=== PATIENT | female | born 1945 | race Caucasian/White ===

== ENCOUNTER 2021-02-07 15:09 | Observation (INO) ==
[2021-02-07] MEDS ORDERED: *HR* Dextrose 50 % in Water (Vial) 50 ML VIAL IVP PRN (16:02)
[2021-02-07] MEDS ORDERED: D5% in Water 1,000 ML IVC PRN (16:02)
[2021-02-07] MEDS ORDERED: Dextrose Gel 15 GM/37.5 ML TUBE PO PRN ×2 (16:02)
[2021-02-07 17:33] LABS: Basophils % 0.3 %; Eosinophils # 0.7 K/mcL (0.0-0.6); Hematocrit 27.4 % (35.3-44.9); Hemoglobin 8.6 g/dL (11.5-15.4); Immature Granulocytes % 0.3 % (0-4); Lymphocytes # 1.8 K/mcL (0.6-4.6); Lymphocytes % 19.7 %; Mean Corpuscular HGB Conc 31.4 g/dL (31.6-35.5); Mean Corpuscular Hemoglobin 28.2 pg (28.0-33.3); Mean Corpuscular Volume 89.8 fL (83.0-100.0); Mean Platelet Volume 9.7 fL (9.4-12.4); Monocytes # 0.8 K/mcL (0.0-1.3); Monocytes % 8.9 %; Neutrophils # 5.6 K/mcL (1.6-8.9); Platelet Count 193 K/mcL (140-400); Red Blood Count 3.05 M/mcL (3.82-4.97); Red Cell Distribution Width 13.7 % (11.5-14.5); Segmented Neutrophils % 62.8 %
[2021-02-07 17:47] LABS: BUN/Creatinine Ratio 24 (6-26); Blood Urea Nitrogen 21 mg/dL (8-23); Calcium 8.7 mg/dL (8.6-10.3); Carbon Dioxide 28 mEq/L (23-29); Chloride 101 mEq/L (98-107); Glucose 150 mg/dL (70-105); Osmolality,Calculated 286 (280-300); Potassium 3.9 mEq/L (3.5-5.1); Sodium 135 mEq/L (136-145); eGFR For African Americans > 60 (> 60); eGFR For Non-African Americans > 60 (> 60)
[2021-02-07] MEDS: Insulin LISPRO 300 UNITS/3 ML VIAL SUBQ SCH (18:07)
[2021-02-07] MEDS ORDERED: Insulin DETEMIR 100 UNIT/ML per UNIT SUBQ ONE (21:00)
[2021-02-07] MEDS: Apixaban 5 MG TABLET PO SCH (21:46)
[2021-02-07] MEDS: Furosemide 40 MG/4 ML VIAL IVP SCH (21:48)
[2021-02-07] MEDS: *HR* OxyCODONE Immed Rel 5 MG TABLET PO PRN (21:59)
[2021-02-07 22:45] LABS: Bilirubin,Urine Negative (Negative); Blood,Urine Large (Negative); Clarity,Urine Cloudy (Clear); Color,Urine Yellow (Yellow); Glucose,Urine (UA) 500 mg/dL (Normal); Ketones,Urine Negative (Negative); Leukocyte Esterase,Urine Small (Negative); Nitrite,Urine Negative (Negative); PH,Urine 5.5 pH Units (5.0-8.0); Protein,Urine 100 mg/dL (Neg-Trace); Urobilinogen,Urine Normal (Normal)
[2021-02-07 22:46] LABS: Bacteria,Urine Moderate per hpf (None-Few); Squamous Epithelial Cell,Urine Few per hpf (None-Few)
[2021-02-08 05:55] LABS: Basophils % 0.5 %; Eosinophils # 0.9 K/mcL (0.0-0.6); Eosinophils % 11.6 %; Hematocrit 26.7 % (35.3-44.9); Hemoglobin 8.4 g/dL (11.5-15.4); Immature Granulocytes % 0.3 % (0-4); Lymphocytes # 1.9 K/mcL (0.6-4.6); Lymphocytes % 23.4 %; Mean Corpuscular HGB Conc 31.5 g/dL (31.6-35.5); Mean Corpuscular Hemoglobin 28.1 pg (28.0-33.3); Mean Corpuscular Volume 89.3 fL (83.0-100.0); Mean Platelet Volume 9.9 fL (9.4-12.4); Monocytes # 0.7 K/mcL (0.0-1.3); Monocytes % 8.8 %; Neutrophils # 4.4 K/mcL (1.6-8.9); Platelet Count 197 K/mcL (140-400); Red Blood Count 2.99 M/mcL (3.82-4.97); Red Cell Distribution Width 13.7 % (11.5-14.5); Segmented Neutrophils % 55.4 %; White Blood Count 7.9 K/mcL (4.3-11.1)
[2021-02-08 06:12] LABS: BUN/Creatinine Ratio 23 (6-26); Blood Urea Nitrogen 22 mg/dL (8-23); Calcium 8.6 mg/dL (8.6-10.3); Carbon Dioxide 29 mEq/L (23-29); Chloride 103 mEq/L (98-107); Glucose 95 mg/dL (70-105); Osmolality,Calculated 291 (280-300); Sodium 139 mEq/L (136-145); eGFR For African Americans > 60 (> 60); eGFR For Non-African Americans 58 (> 60)
[2021-02-08] MEDS: Insulin LISPRO 300 UNITS/3 ML VIAL SUBQ SCH ×3 (08:08→17:24)
[2021-02-08] MEDS: Aspirin Enteric Coated 81 MG Tablet PO SCH (08:09)
[2021-02-08] MEDS: lisinopriL 20 MG TABLET PO SCH (08:09)
[2021-02-08] MEDS: Apixaban 5 MG TABLET PO SCH ×2 (08:09→20:03)
[2021-02-08] MEDS: Furosemide 40 MG/4 ML VIAL IVP SCH ×2 (08:09→14:47)
[2021-02-08] MEDS: Metoprolol XL (24 HR) Succ 50 MG TAB.ER.24H PO SCH (08:09)
[2021-02-08] MEDS ORDERED: Apixaban 5 MG TABLET PO SCH (09:00)
[2021-02-08] MEDS ORDERED: Levothyroxine 25 MCG TABLET PO SCH (09:00)
[2021-02-08] MEDS: Insulin DETEMIR 100 UNIT/ML X5UNITS SUBQ SCH ×2 (10:54→20:03)
[2021-02-08 13:18] LABS: % Iron Saturation 13 % (15-50); Iron 30 mcg/dL (50-170); Transferrin 167 mg/dL (203-362)
[2021-02-08 13:23] LABS: Estimated Average Glucose 180 mg/dl; Hemoglobin A1C 7.9 %
[2021-02-08] MEDS: *HR* OxyCODONE Immed Rel 5 MG TABLET PO PRN (14:47)
[2021-02-08] MEDS: cephALEXin 250 MG CAPSULE PO SCH ×3 (14:47→20:03)
[2021-02-09 05:17] LABS: Basophils % 0.4 %; Eosinophils % 9.4 %; Hematocrit 26.2 % (35.3-44.9); Hemoglobin 8.3 g/dL (11.5-15.4); Immature Granulocytes % 0.2 % (0-4); Lymphocytes # 3.1 K/mcL (0.6-4.6); Lymphocytes % 30.6 %; Mean Corpuscular HGB Conc 31.7 g/dL (31.6-35.5); Mean Corpuscular Hemoglobin 28.2 pg (28.0-33.3); Mean Corpuscular Volume 89.1 fL (83.0-100.0); Mean Platelet Volume 9.5 fL (9.4-12.4); Monocytes # 0.9 K/mcL (0.0-1.3); Monocytes % 8.9 %; Neutrophils # 5.2 K/mcL (1.6-8.9); Platelet Count 240 K/mcL (140-400); Red Blood Count 2.94 M/mcL (3.82-4.97); Red Cell Distribution Width 13.5 % (11.5-14.5); Segmented Neutrophils % 50.5 %; White Blood Count 10.3 K/mcL (4.3-11.1)
[2021-02-09 05:35] LABS: BUN/Creatinine Ratio 23 (6-26); Blood Urea Nitrogen 21 mg/dL (8-23); Calcium 8.3 mg/dL (8.6-10.3); Carbon Dioxide 33 mEq/L (23-29); Chloride 101 mEq/L (98-107); Glucose 61 mg/dL (70-105); Osmolality,Calculated 289 (280-300); Potassium 3.9 mEq/L (3.5-5.1); Sodium 139 mEq/L (136-145); eGFR For African Americans > 60 (> 60); eGFR For Non-African Americans > 60 (> 60)
[2021-02-09] MEDS ORDERED: Iron Polysaccharide Complex 150 MG CAPSULE PO SCH (09:00)
[2021-02-09] MEDS ORDERED: Furosemide 20 MG/2 ML VIAL IVP ONE (09:07)
[2021-02-09] MEDS: Insulin LISPRO 300 UNITS/3 ML VIAL SUBQ SCH ×3 (09:59→16:59)
[2021-02-09] MEDS: Cyanocobalamin (B-12) 1,000 MCG TABLET PO SCH (09:59)
[2021-02-09] MEDS: Aspirin Enteric Coated 81 MG Tablet PO SCH (09:59)
[2021-02-09] MEDS: lisinopriL 20 MG TABLET PO SCH (09:59)
[2021-02-09] MEDS: Apixaban 5 MG TABLET PO SCH ×2 (10:00→20:25)
[2021-02-09] MEDS: Insulin DETEMIR 100 UNIT/ML X5UNITS SUBQ SCH ×2 (10:00→20:25)
[2021-02-09] MEDS: Furosemide 40 MG/4 ML VIAL IVP SCH ×2 (10:00→16:52)
[2021-02-09] MEDS: Metoprolol XL (24 HR) Succ 50 MG TAB.ER.24H PO SCH (10:00)
[2021-02-09] MEDS: cephALEXin 250 MG CAPSULE PO SCH ×4 (10:00→20:25)
[2021-02-09] MEDS: *HR* OxyCODONE Immed Rel 5 MG TABLET PO PRN (16:52)
[2021-02-10 05:18] LABS: Eosinophils % 12.4 %; Hematocrit 25.4 % (35.3-44.9); Hemoglobin 8.1 g/dL (11.5-15.4); Immature Granulocytes % 0.4 % (0-4); Lymphocytes % 26.5 %; Mean Corpuscular HGB Conc 31.9 g/dL (31.6-35.5); Mean Corpuscular Hemoglobin 28.2 pg (28.0-33.3); Mean Corpuscular Volume 88.5 fL (83.0-100.0); Mean Platelet Volume 9.6 fL (9.4-12.4); Platelet Count 219 K/mcL (140-400); Red Blood Count 2.87 M/mcL (3.82-4.97); Red Cell Distribution Width 13.4 % (11.5-14.5); Segmented Neutrophils % 50.2 %; White Blood Count 7.5 K/mcL (4.3-11.1)
[2021-02-10 05:19] LABS: Basophils % 0.5 %; Eosinophils # 0.9 K/mcL (0.0-0.6); Monocytes # 0.8 K/mcL (0.0-1.3); Neutrophils # 3.8 K/mcL (1.6-8.9)
[2021-02-10 05:36] LABS: Alanine Aminotransferase 4 Units/L (7-52); Albumin 2.7 g/dL (3.5-5.7); Albumin/Globulin Ratio 0.8 (1.1-2.2); Alkaline Phosphatase 34 Units/L (34-104); Aspartate Amino Transferase 7 Units/L (13-39); BUN/Creatinine Ratio 33 (6-26); Bilirubin,Total 0.4 mg/dL (0.3-1.0); Blood Urea Nitrogen 26 mg/dL (8-23); Calcium 8.2 mg/dL (8.6-10.3); Carbon Dioxide 35 mEq/L (23-29); Chloride 97 mEq/L (98-107); Globulin 3.2 g/dL (2.4-3.5); Glucose 101 mg/dL (70-105); Osmolality,Calculated 287 (280-300); Potassium 3.7 mEq/L (3.5-5.1); Sodium 136 mEq/L (136-145); Total Protein 5.9 g/dL (6.4-8.9); eGFR For African Americans > 60 (> 60); eGFR For Non-African Americans > 60 (> 60)
[2021-02-10] MEDS: Insulin LISPRO 300 UNITS/3 ML VIAL SUBQ SCH ×3 (08:32→17:16)
[2021-02-10] MEDS: Insulin DETEMIR 100 UNIT/ML X5UNITS SUBQ SCH (08:32)
[2021-02-10] MEDS: Metoprolol XL (24 HR) Succ 50 MG TAB.ER.24H PO SCH (08:41)
[2021-02-10] MEDS: Cyanocobalamin (B-12) 1,000 MCG TABLET PO SCH (08:41)
[2021-02-10] MEDS: Apixaban 5 MG TABLET PO SCH (08:42)
[2021-02-10] MEDS: Aspirin Enteric Coated 81 MG Tablet PO SCH (08:42)
[2021-02-10] MEDS: Furosemide 40 MG/4 ML VIAL IVP SCH (08:44)
[2021-02-10] MEDS: lisinopriL 20 MG TABLET PO SCH (08:44)
[2021-02-10 10:42] LABS: VBG HCO3 28 mEq/L (21-27); VBG Ionized Calcium 1.08 mmol/L (1.15-1.35); VBG PCO2 42 mmHg (41-51); VBG PH 7.43 pH Units (7.32-7.42); VBG PO2 49 mmHg (25-50)
[2021-02-10] MEDS ORDERED: Iron Sucrose Complex 200 MG in 0.9 % Sodium Chloride 100 ML IVPB SCH (11:00)
[2021-02-10] MEDS ORDERED: Furosemide 40 MG TABLET PO ONE (17:00)
[2021-02-10 19:07] VITALS: BP 120/74; PULSE 83; RESP 18; TEMP 98; O2SAT 96
[2021-02-10] MEDS ORDERED: Preparation H Ointment 57 GM TUBE RC SCH (21:00)
== END 2021-02-10 18:25 | disposition home or self-care (01) ==
LOC: INPGRE
PROVIDERS: ADMIT Family Medicine; ATTEND Family Medicine

== ENCOUNTER 2021-02-25 15:21 | Inpatient (IN) ==
[2021-02-25 16:52] LABS: Basophils % 0.4 %; Eosinophils # 0.1 K/mcL (0.0-0.6); Hematocrit 31.6 % (35.3-44.9); Immature Granulocytes % 0.9 % (0-4); Lymphocytes # 1.5 K/mcL (0.6-4.6); Lymphocytes % 13.9 %; Mean Corpuscular HGB Conc 31.6 g/dL (31.6-35.5); Mean Corpuscular Hemoglobin 27.2 pg (28.0-33.3); Mean Corpuscular Volume 86.1 fL (83.0-100.0); Mean Platelet Volume 9.3 fL (9.4-12.4); Monocytes # 0.7 K/mcL (0.0-1.3); Monocytes % 6.1 %; Neutrophils # 8.6 K/mcL (1.6-8.9); Platelet Count 405 K/mcL (140-400); Red Blood Count 3.67 M/mcL (3.82-4.97); Red Cell Distribution Width 13.9 % (11.5-14.5); Segmented Neutrophils % 77.7 %; White Blood Count 11.1 K/mcL (4.3-11.1)
[2021-02-25 17:07] LABS: BUN/Creatinine Ratio 35 (6-26); Blood Urea Nitrogen 33 mg/dL (8-23); Calcium 9.7 mg/dL (8.6-10.3); Carbon Dioxide 29 mEq/L (23-29); Chloride 91 mEq/L (98-107); Glucose 433 mg/dL (70-105); Osmolality,Calculated 292 (280-300); Potassium 4.3 mEq/L (3.5-5.1); Sodium 128 mEq/L (136-145); eGFR For African Americans > 60 (> 60); eGFR For Non-African Americans 58 (> 60)
[2021-02-25] MEDS ORDERED: 0.9 % Sodium Chloride 1,000 ML IVC SCH ×2 (18:00→19:49)
[2021-02-25] MEDS ORDERED: Acetaminophen 325 MG TABLET PO PRN ×2 (19:03→19:49)
[2021-02-25] MEDS ORDERED: *HR* HYDROcodone/Acet 5/325 mg TABLET PO PRN (19:03)
[2021-02-25] MEDS ORDERED: *HR* OxyCODONE Immed Rel 5 MG TABLET PO PRN (19:03)
[2021-02-25] MEDS ORDERED: *HR* Dextrose 50 % in Water (Vial) 50 ML VIAL IVP PRN (19:49)
[2021-02-25] MEDS ORDERED: Dextrose Gel 15 GM/37.5 ML TUBE PO PRN ×2 (19:49)
[2021-02-25] MEDS ORDERED: D5% in Water 1,000 ML IVC PRN (19:49)
[2021-02-25] MEDS: Insulin LISPRO 300 UNITS/3 ML VIAL SUBQ SCH (20:37)
[2021-02-25] MEDS ORDERED: Furosemide 20 MG TABLET PO SCH (21:00)
[2021-02-25] MEDS ORDERED: Insulin DETEMIR 100 UNIT/ML per UNIT SUBQ ONE (21:00)
[2021-02-25] MEDS ORDERED: Insulin LISPRO 300 UNITS/3 ML VIAL SUBQ SCH (21:00)
[2021-02-25] MEDS: *HR* OxyCODONE Immed Rel 5 MG TABLET PO PRN (21:29)
[2021-02-25] MEDS: Furosemide 40 MG/4 ML VIAL IVP SCH (22:21)
[2021-02-26] MEDS: cefTAZidime 2,000 MG in Water for inj. (sterile) 20 ML IVP SCH ×5 (00:20→23:51)
[2021-02-26 04:33] LABS: Basophils % 0.4 %; Eosinophils # 0.2 K/mcL (0.0-0.6); Hematocrit 28.4 % (35.3-44.9); Immature Granulocytes % 0.4 % (0-4); Lymphocytes # 1.9 K/mcL (0.6-4.6); Lymphocytes % 16.8 %; Mean Corpuscular HGB Conc 31.7 g/dL (31.6-35.5); Mean Corpuscular Hemoglobin 27.3 pg (28.0-33.3); Mean Corpuscular Volume 86.1 fL (83.0-100.0); Mean Platelet Volume 9.3 fL (9.4-12.4); Monocytes # 0.7 K/mcL (0.0-1.3); Monocytes % 6.5 %; Neutrophils # 8.2 K/mcL (1.6-8.9); Platelet Count 341 K/mcL (140-400); Red Cell Distribution Width 13.7 % (11.5-14.5); Segmented Neutrophils % 73.9 %; White Blood Count 11.1 K/mcL (4.3-11.1)
[2021-02-26 04:47] LABS: Alanine Aminotransferase 5 Units/L (7-52); Albumin 2.8 g/dL (3.5-5.7); Albumin/Globulin Ratio 0.7 (1.1-2.2); Alkaline Phosphatase 41 Units/L (34-104); Aspartate Amino Transferase 5 Units/L (13-39); BUN/Creatinine Ratio 36 (6-26); Bilirubin,Total 0.2 mg/dL (0.3-1.0); Blood Urea Nitrogen 33 mg/dL (8-23); Calcium 8.5 mg/dL (8.6-10.3); Carbon Dioxide 32 mEq/L (23-29); Chloride 94 mEq/L (98-107); Globulin 3.8 g/dL (2.4-3.5); Glucose 436 mg/dL (70-105); Osmolality,Calculated 298 (280-300); Potassium 4.5 mEq/L (3.5-5.1); Sodium 131 mEq/L (136-145); Total Protein 6.6 g/dL (6.4-8.9); eGFR For African Americans > 60 (> 60); eGFR For Non-African Americans 60 (> 60)
[2021-02-26] MEDS: Levothyroxine 25 MCG TABLET PO SCH (05:56)
[2021-02-26] MEDS ORDERED: Insulin LISPRO 300 UNITS/3 ML VIAL SUBQ SCH (07:30)
[2021-02-26] MEDS: Apixaban 5 MG TABLET PO SCH ×2 (07:36→22:14)
[2021-02-26] MEDS: Furosemide 40 MG/4 ML VIAL IVP SCH ×2 (07:37→17:06)
[2021-02-26] MEDS: lisinopriL 20 MG TABLET PO SCH (07:37)
[2021-02-26] MEDS: Cyanocobalamin (B-12) 1,000 MCG TABLET PO SCH (07:37)
[2021-02-26] MEDS: Spironolactone 25 MG TABLET PO SCH (07:38)
[2021-02-26] MEDS: amLODIPine 5 MG TABLET PO SCH (07:38)
[2021-02-26] MEDS: Metoprolol XL (24 HR) Succ 50 MG TAB.ER.24H PO SCH (07:38)
[2021-02-26] MEDS: Aspirin Enteric Coated 81 MG Tablet PO SCH (07:38)
[2021-02-26] MEDS: *HR* OxyCODONE Immed Rel 5 MG TABLET PO PRN ×2 (07:45→22:14)
[2021-02-26] MEDS: Insulin LISPRO 300 UNITS/3 ML VIAL SUBQ SCH ×4 (07:58→22:15)
[2021-02-26] MEDS ORDERED: Apixaban 5 MG TABLET PO SCH (09:00)
[2021-02-26] MEDS ORDERED: Patient Taking Own Medication 1 EACH PO SCH (09:00)
[2021-02-26] MEDS: *HR* HYDROcodone/Acet 5/325 mg TABLET PO PRN (17:05)
[2021-02-26] MEDS: Insulin DETEMIR 100 UNIT/ML X5UNITS SUBQ SCH (22:15)
[2021-02-27] MEDS: Levothyroxine 25 MCG TABLET PO SCH (05:45)
[2021-02-27] MEDS: cefTAZidime 2,000 MG in Water for inj. (sterile) 20 ML IVP SCH ×3 (08:50→23:26)
[2021-02-27] MEDS: amLODIPine 5 MG TABLET PO SCH (08:53)
[2021-02-27] MEDS: Cyanocobalamin (B-12) 1,000 MCG TABLET PO SCH (08:53)
[2021-02-27] MEDS: Aspirin Enteric Coated 81 MG Tablet PO SCH (08:53)
[2021-02-27] MEDS: lisinopriL 20 MG TABLET PO SCH (08:53)
[2021-02-27] MEDS: Apixaban 5 MG TABLET PO SCH ×2 (08:53→21:28)
[2021-02-27] MEDS: Spironolactone 25 MG TABLET PO SCH (08:53)
[2021-02-27] MEDS: Metoprolol XL (24 HR) Succ 50 MG TAB.ER.24H PO SCH (08:53)
[2021-02-27] MEDS: Insulin LISPRO 300 UNITS/3 ML VIAL SUBQ SCH ×4 (08:54→21:28)
[2021-02-27] MEDS: Furosemide 40 MG/4 ML VIAL IVP SCH ×2 (08:54→16:41)
[2021-02-27] MEDS: Insulin DETEMIR 100 UNIT/ML X5UNITS SUBQ SCH (21:12)
[2021-02-27] MEDS ORDERED: Insulin DETEMIR 100 UNIT/ML per UNIT SUBQ ONE (21:15)
[2021-02-27] MEDS: *HR* HYDROcodone/Acet 5/325 mg TABLET PO PRN (21:36)
[2021-02-28] MEDS: Levothyroxine 25 MCG TABLET PO SCH (05:28)
[2021-02-28 07:00] LABS: Basophils # 0.1 K/mcL (0.0-0.2); Basophils % 0.5 %; Eosinophils # 3.5 K/mcL (0.0-0.6); Hematocrit 33.8 % (35.3-44.9); Hemoglobin 10.7 g/dL (11.5-15.4); Immature Granulocytes % 1.4 % (0-4); Lymphocytes # 3.1 K/mcL (0.6-4.6); Lymphocytes % 19.7 %; Mean Corpuscular HGB Conc 31.7 g/dL (31.6-35.5); Mean Corpuscular Hemoglobin 27.7 pg (28.0-33.3); Mean Corpuscular Volume 87.6 fL (83.0-100.0); Mean Platelet Volume 9.5 fL (9.4-12.4); Monocytes # 1.1 K/mcL (0.0-1.3); Monocytes % 6.9 %; Neutrophils # 7.8 K/mcL (1.6-8.9); Platelet Count 357 K/mcL (140-400); Red Blood Count 3.86 M/mcL (3.82-4.97); Red Cell Distribution Width 14.2 % (11.5-14.5); Segmented Neutrophils % 49.5 %; White Blood Count 15.7 K/mcL (4.3-11.1)
[2021-02-28 07:26] LABS: BUN/Creatinine Ratio 45 (6-26); Blood Urea Nitrogen 42 mg/dL (8-23); Calcium 8.5 mg/dL (8.6-10.3); Carbon Dioxide 33 mEq/L (23-29); Chloride 96 mEq/L (98-107); Glucose 117 mg/dL (70-105); Osmolality,Calculated 290 (280-300); Potassium 4.4 mEq/L (3.5-5.1); Sodium 134 mEq/L (136-145); eGFR For African Americans > 60 (> 60); eGFR For Non-African Americans 59 (> 60)
[2021-02-28] MEDS: Metoprolol XL (24 HR) Succ 50 MG TAB.ER.24H PO SCH (08:33)
[2021-02-28] MEDS: Apixaban 5 MG TABLET PO SCH ×2 (08:33→21:08)
[2021-02-28] MEDS: lisinopriL 20 MG TABLET PO SCH (08:33)
[2021-02-28] MEDS: *HR* HYDROcodone/Acet 5/325 mg TABLET PO PRN ×2 (08:33→21:08)
[2021-02-28] MEDS: Spironolactone 25 MG TABLET PO SCH (08:33)
[2021-02-28] MEDS: Aspirin Enteric Coated 81 MG Tablet PO SCH (08:33)
[2021-02-28] MEDS: Cyanocobalamin (B-12) 1,000 MCG TABLET PO SCH (08:34)
[2021-02-28] MEDS: amLODIPine 5 MG TABLET PO SCH (08:34)
[2021-02-28] MEDS: Furosemide 40 MG/4 ML VIAL IVP SCH (08:34)
[2021-02-28] MEDS: cefTAZidime 2,000 MG in Water for inj. (sterile) 20 ML IVP SCH ×3 (08:42→23:33)
[2021-02-28] MEDS: Insulin LISPRO 300 UNITS/3 ML VIAL SUBQ SCH ×4 (08:42→21:08)
[2021-02-28] MEDS ORDERED: methylPREDNISolone 125 MG/2 ML VIAL IVP ONE (08:49)
[2021-02-28] MEDS: *HR* OxyCODONE Immed Rel 5 MG TABLET PO PRN (15:26)
[2021-02-28] MEDS: predniSONE 10 MG TABLET PO SCH (17:50)
[2021-02-28] MEDS ORDERED: Insulin DETEMIR 100 UNIT/ML per UNIT SUBQ ONE (21:00)
[2021-02-28] MEDS ORDERED: Insulin DETEMIR 100 UNIT/ML X5UNITS SUBQ SCH (21:00)
[2021-03-01] MEDS: Levothyroxine 25 MCG TABLET PO SCH (05:29)
[2021-03-01 06:19] LABS: Basophils % 0.2 %; Eosinophils # 0.1 K/mcL (0.0-0.6); Eosinophils % 0.4 %; Hematocrit 28.2 % (35.3-44.9); Hemoglobin 8.9 g/dL (11.5-15.4); Immature Granulocytes % 1.3 % (0-4); Lymphocytes # 1.3 K/mcL (0.6-4.6); Lymphocytes % 9.3 %; Mean Corpuscular HGB Conc 31.6 g/dL (31.6-35.5); Mean Corpuscular Hemoglobin 27.1 pg (28.0-33.3); Mean Corpuscular Volume 85.7 fL (83.0-100.0); Mean Platelet Volume 9.8 fL (9.4-12.4); Monocytes # 0.5 K/mcL (0.0-1.3); Monocytes % 3.5 %; Neutrophils # 11.8 K/mcL (1.6-8.9); Platelet Count 264 K/mcL (140-400); Red Blood Count 3.29 M/mcL (3.82-4.97); Segmented Neutrophils % 85.3 %; White Blood Count 13.8 K/mcL (4.3-11.1)
[2021-03-01 06:46] LABS: Calcium 8.4 mg/dL (8.6-10.3); Potassium 4.3 mEq/L (3.5-5.1)
[2021-03-01] MEDS: predniSONE 10 MG TABLET PO SCH (08:07)
[2021-03-01] MEDS: Apixaban 5 MG TABLET PO SCH ×2 (08:07→21:01)
[2021-03-01] MEDS: lisinopriL 20 MG TABLET PO SCH (08:07)
[2021-03-01] MEDS: Cyanocobalamin (B-12) 1,000 MCG TABLET PO SCH (08:07)
[2021-03-01] MEDS: Metoprolol XL (24 HR) Succ 50 MG TAB.ER.24H PO SCH (08:07)
[2021-03-01] MEDS: amLODIPine 5 MG TABLET PO SCH (08:07)
[2021-03-01] MEDS: Aspirin Enteric Coated 81 MG Tablet PO SCH (08:07)
[2021-03-01] MEDS: cefTAZidime 2,000 MG in Water for inj. (sterile) 20 ML IVP SCH ×3 (08:08→23:08)
[2021-03-01] MEDS: Insulin LISPRO 300 UNITS/3 ML VIAL SUBQ SCH ×4 (08:15→21:02)
[2021-03-01] MEDS: Insulin DETEMIR 100 UNIT/ML X5UNITS SUBQ SCH (21:02)
[2021-03-01] MEDS: *HR* OxyCODONE Immed Rel 5 MG TABLET PO PRN (21:02)
[2021-03-02] MEDS: Levothyroxine 25 MCG TABLET PO SCH (04:18)
[2021-03-02] MEDS: *HR* OxyCODONE Immed Rel 5 MG TABLET PO PRN ×3 (04:18→21:46)
[2021-03-02 04:45] LABS: Basophils # 0.1 K/mcL (0.0-0.2); Basophils % 0.5 %; Eosinophils # 1.4 K/mcL (0.0-0.6); Eosinophils % 9.4 %; Hematocrit 29.7 % (35.3-44.9); Hemoglobin 9.2 g/dL (11.5-15.4); Immature Granulocytes % 1.1 % (0-4); Lymphocytes # 2.9 K/mcL (0.6-4.6); Lymphocytes % 19.3 %; Mean Corpuscular Hemoglobin 27.1 pg (28.0-33.3); Mean Corpuscular Volume 87.4 fL (83.0-100.0); Mean Platelet Volume 9.4 fL (9.4-12.4); Monocytes # 0.8 K/mcL (0.0-1.3); Monocytes % 5.5 %; Neutrophils # 9.5 K/mcL (1.6-8.9); Platelet Count 301 K/mcL (140-400); Red Cell Distribution Width 14.3 % (11.5-14.5); Segmented Neutrophils % 64.2 %; White Blood Count 14.8 K/mcL (4.3-11.1)
[2021-03-02] MEDS: cefTAZidime 2,000 MG in Water for inj. (sterile) 20 ML IVP SCH ×2 (09:01→16:18)
[2021-03-02] MEDS: amLODIPine 5 MG TABLET PO SCH (09:02)
[2021-03-02] MEDS: Apixaban 5 MG TABLET PO SCH ×2 (09:02→21:46)
[2021-03-02] MEDS: predniSONE 10 MG TABLET PO SCH (09:02)
[2021-03-02] MEDS: Cyanocobalamin (B-12) 1,000 MCG TABLET PO SCH (09:02)
[2021-03-02] MEDS: lisinopriL 20 MG TABLET PO SCH (09:02)
[2021-03-02] MEDS: Metoprolol XL (24 HR) Succ 50 MG TAB.ER.24H PO SCH (09:02)
[2021-03-02] MEDS: Aspirin Enteric Coated 81 MG Tablet PO SCH (09:03)
[2021-03-02] MEDS: Insulin LISPRO 300 UNITS/3 ML VIAL SUBQ SCH ×4 (09:04→21:47)
[2021-03-02 11:29] LABS: eGFR For African Americans > 60 (> 60); eGFR For Non-African Americans > 60 (> 60)
[2021-03-02] MEDS ORDERED: Ondansetron ODT 4 MG TAB.RAPDIS SL PRN (14:14)
[2021-03-02] MEDS: Insulin DETEMIR 100 UNIT/ML X5UNITS SUBQ SCH (21:46)
[2021-03-03] MEDS: cefTAZidime 2,000 MG in Water for inj. (sterile) 20 ML IVP SCH ×3 (00:13→15:54)
[2021-03-03] MEDS: Levothyroxine 25 MCG TABLET PO SCH (04:39)
[2021-03-03 05:18] LABS: Basophils # 0.1 K/mcL (0.0-0.2); Basophils % 0.5 %; Eosinophils # 0.6 K/mcL (0.0-0.6); Eosinophils % 5.6 %; Hematocrit 28.9 % (35.3-44.9); Hemoglobin 9.1 g/dL (11.5-15.4); Immature Granulocytes % 0.8 % (0-4); Lymphocytes # 2.4 K/mcL (0.6-4.6); Lymphocytes % 20.4 %; Mean Corpuscular HGB Conc 31.5 g/dL (31.6-35.5); Mean Corpuscular Hemoglobin 27.5 pg (28.0-33.3); Mean Corpuscular Volume 87.3 fL (83.0-100.0); Mean Platelet Volume 9.8 fL (9.4-12.4); Monocytes # 0.8 K/mcL (0.0-1.3); Monocytes % 6.8 %; Neutrophils # 7.6 K/mcL (1.6-8.9); Platelet Count 278 K/mcL (140-400); Red Blood Count 3.31 M/mcL (3.82-4.97); Red Cell Distribution Width 14.4 % (11.5-14.5); Segmented Neutrophils % 65.9 %; White Blood Count 11.5 K/mcL (4.3-11.1)
[2021-03-03 05:31] LABS: BUN/Creatinine Ratio 43 (6-26); Blood Urea Nitrogen 30 mg/dL (8-23); Calcium 8.9 mg/dL (8.6-10.3); Carbon Dioxide 32 mEq/L (23-29); Chloride 100 mEq/L (98-107); Glucose 149 mg/dL (70-105); Osmolality,Calculated 293 (280-300); Potassium 4.1 mEq/L (3.5-5.1); Sodium 137 mEq/L (136-145); eGFR For African Americans > 60 (> 60); eGFR For Non-African Americans > 60 (> 60)
[2021-03-03] MEDS: lisinopriL 20 MG TABLET PO SCH (08:26)
[2021-03-03] MEDS: amLODIPine 5 MG TABLET PO SCH (08:26)
[2021-03-03] MEDS: predniSONE 10 MG TABLET PO SCH (08:26)
[2021-03-03] MEDS: Apixaban 5 MG TABLET PO SCH (08:26)
[2021-03-03] MEDS: Aspirin Enteric Coated 81 MG Tablet PO SCH (08:26)
[2021-03-03] MEDS: Metoprolol XL (24 HR) Succ 50 MG TAB.ER.24H PO SCH (08:26)
[2021-03-03] MEDS: Cyanocobalamin (B-12) 1,000 MCG TABLET PO SCH (08:26)
[2021-03-03] MEDS: Insulin LISPRO 300 UNITS/3 ML VIAL SUBQ SCH ×3 (08:27→15:54)
[2021-03-03 11:41] VITALS: PULSE 78; RESP 15
[2021-03-03 16:27] VITALS: BP 129/70; TEMP 98; O2SAT 100
== END 2021-03-03 18:38 | disposition home or self-care (01) | DRG 595 ==
LOC: INPGRE 15:21 → EMEROOGRE 15:21 → INPGRE 19:53
PROVIDERS: ADMIT Family Medicine; ATTEND Family Medicine

== ENCOUNTER 2021-07-29 11:53 | Observation (INO) ==
[2021-07-29] MEDS ORDERED: *HR* FentaNYL (PF) 100 MCG/2 ML VIAL IVP ONE (12:29)
[2021-07-29 13:18] LABS: Basophils # 0.1 K/mcL (0.0-0.2); Basophils % 0.7 %; Eosinophils # 0.6 K/mcL (0.0-0.6); Eosinophils % 4.6 %; Hemoglobin 11.1 g/dL (11.5-15.4); Immature Granulocytes % 0.7 % (0-4); Lymphocytes # 1.7 K/mcL (0.6-4.6); Lymphocytes % 13.8 %; Mean Corpuscular HGB Conc 30.8 g/dL (31.6-35.5); Mean Corpuscular Hemoglobin 25.7 pg (28.0-33.3); Mean Corpuscular Volume 83.3 fL (83.0-100.0); Mean Platelet Volume 9.5 fL (9.4-12.4); Monocytes # 0.8 K/mcL (0.0-1.3); Monocytes % 6.3 %; Neutrophils # 9.2 K/mcL (1.6-8.9); Platelet Count 335 K/mcL (140-400); Red Blood Count 4.32 M/mcL (3.82-4.97); Red Cell Distribution Width 16.6 % (11.5-14.5); Segmented Neutrophils % 73.9 %; White Blood Count 12.5 K/mcL (4.3-11.1)
[2021-07-29 13:24] LABS: VBG HCO3 18 mEq/L (21-27); VBG PCO2 33 mmHg (41-51); VBG PH 7.35 pH Units (7.32-7.42); VBG PO2 54 mmHg (25-50)
[2021-07-29 13:32] LABS: Albumin 3.3 g/dL (3.5-5.7); Albumin/Globulin Ratio 0.7 (1.1-2.2); Bilirubin,Total 0.2 mg/dL (0.3-1.0); Calcium 9.7 mg/dL (8.6-10.3); Globulin 4.5 g/dL (2.4-3.5); Potassium 5.3 mEq/L (3.5-5.1); Total Protein 7.8 g/dL (6.4-8.9)
[2021-07-29] MEDS ORDERED: Acetaminophen 325 MG TABLET PO ONE (16:09)
[2021-07-29] MEDS ORDERED: Ondansetron 4 MG/2 ML VIAL IVP PRN (16:12)
[2021-07-29] MEDS ORDERED: Naloxone 0.4 MG/ML INJ IVP PRN (16:12)
[2021-07-29] MEDS ORDERED: 0.9 % Sodium Chloride 1,000 ML IVC ONE (16:12)
[2021-07-29] MEDS ORDERED: Fluconazole 200 MG/100 ML 200 MG/100 ML BAG IVPB SCH ×3 (16:15→20:00)
[2021-07-29] MEDS ORDERED: *HR* Enoxaparin 30 MG/0.3 ML SYRINGE SQ SCH (16:15)
[2021-07-29] MEDS ORDERED: Iopamidol - 370 500 ML MLS IVP ONE (16:53)
[2021-07-29] MEDS ORDERED: Vancomycin (wt based) 1,000 MG VIAL IVPB SCH (17:00)
[2021-07-29] MEDS ORDERED: Piperacillin/Tazobactam 3.375 GM in 0.9 % Sodium Chloride Mini Bag 100 ML IVPB SCH ×2 (17:00→21:00)
[2021-07-29] MEDS ORDERED: 0.9 % Sodium Chloride 500 ML IVC ONE (17:03)
[2021-07-29 19:34] LABS: Calcium 8.4 mg/dL (8.6-10.3); Potassium 5.9 mEq/L (3.5-5.1)
[2021-07-29] MEDS ORDERED: Dextrose Gel 15 GM/37.5 ML TUBE PO PRN ×2 (20:02)
[2021-07-29] MEDS ORDERED: *HR* Dextrose 50 % in Water (Syg) 50 ML SYRINGE IVP PRN (20:02)
[2021-07-29] MEDS ORDERED: D5% in Water 1,000 ML IVC PRN (20:02)
[2021-07-29 20:13] LABS: Bilirubin,Urine Negative (Negative); Blood,Urine Moderate (Negative); Clarity,Urine Slightly Cloudy (Clear); Glucose,Urine (UA) 500 mg/dL (Normal); Ketones,Urine Negative (Negative); Leukocyte Esterase,Urine Negative (Negative); Nitrite,Urine Negative (Negative); Protein,Urine 100 mg/dL (Neg-Trace); Specific Gravity,Urine 1.015 (1.010-1.025); Urobilinogen,Urine Normal (Normal)
[2021-07-29 20:14] LABS: Color,Urine Yellow (Yellow)
[2021-07-29 20:15] LABS: Amorphous Sediment,Urine Few per hpf (None-Few); Hyaline Casts,Urine Few per lpf (None Seen); Squamous Epithelial Cell,Urine Few per hpf (None-Few)
[2021-07-29] MEDS ORDERED: Albuterol 2.5 MG/3 ML NEBULIZER IH PRN (20:35)
[2021-07-29] MEDS: Piperacillin/Tazobactam 3.375 GM in 0.9 % Sodium Chloride Mini Bag 100 ML IVPB SCH (20:52)
[2021-07-29] MEDS ORDERED: Insulin DETEMIR 100 UNIT/ML per UNIT SUBQ ONE ×3 (21:00)
[2021-07-29] MEDS ORDERED: Insulin LISPRO 300 UNITS/3 ML VIAL SUBQ SCH (21:00)
[2021-07-29] MEDS ORDERED: 0.9 % Sodium Chloride 500 ML IV ONE (23:34)
[2021-07-30] MEDS: Piperacillin/Tazobactam 3.375 GM in 0.9 % Sodium Chloride Mini Bag 100 ML IVPB SCH ×2 (05:05→14:02)
[2021-07-30 05:31] LABS: Basophils # 0.1 K/mcL (0.0-0.2); Basophils % 0.4 %; Eosinophils # 0.3 K/mcL (0.0-0.6); Eosinophils % 2.3 %; Hematocrit 29.1 % (35.3-44.9); Hemoglobin 9.2 g/dL (11.5-15.4); Immature Granulocytes % 0.3 % (0-4); Lymphocytes # 1.7 K/mcL (0.6-4.6); Lymphocytes % 14.4 %; Mean Corpuscular HGB Conc 31.6 g/dL (31.6-35.5); Mean Corpuscular Hemoglobin 25.4 pg (28.0-33.3); Mean Corpuscular Volume 80.4 fL (83.0-100.0); Mean Platelet Volume 9.8 fL (9.4-12.4); Monocytes % 7.9 %; Platelet Count 276 K/mcL (140-400); Red Blood Count 3.62 M/mcL (3.82-4.97); Red Cell Distribution Width 16.5 % (11.5-14.5); Segmented Neutrophils % 74.7 %
[2021-07-30 05:52] LABS: Albumin 2.6 g/dL (3.5-5.7); Albumin/Globulin Ratio 0.7 (1.1-2.2); Bilirubin,Total 0.2 mg/dL (0.3-1.0); Calcium 8.5 mg/dL (8.6-10.3); Globulin 3.5 g/dL (2.4-3.5); Potassium 4.6 mEq/L (3.5-5.1); Total Protein 6.1 g/dL (6.4-8.9)
[2021-07-30] MEDS ORDERED: *HR* Enoxaparin 40 MG/0.4 ML SYRINGE SQ SCH (06:00)
[2021-07-30] MEDS ORDERED: Levothyroxine 25 MCG TABLET PO SCH ×2 (06:30)
[2021-07-30] MEDS ORDERED: Cyanocobalamin (B-12) 1,000 MCG TABLET PO SCH (09:00)
[2021-07-30] MEDS ORDERED: Insulin DETEMIR 100 UNIT/ML X5UNITS SUBQ SCH ×2 (09:00→21:00)
[2021-07-30] MEDS ORDERED: amLODIPine 5 MG TABLET PO SCH ×2 (09:00)
[2021-07-30] MEDS ORDERED: Aspirin Enteric Coated 81 MG Tablet PO SCH (09:00)
[2021-07-30] MEDS ORDERED: Metoprolol XL (24 HR) Succ 50 MG TAB.ER.24H PO SCH ×2 (09:00)
[2021-07-30] MEDS ORDERED: lisinopriL 20 MG TABLET PO SCH ×2 (09:00)
[2021-07-30] MEDS ORDERED: 0.9 % Sodium Chloride 500 ML IV ONE (09:04)
[2021-07-30] MEDS: Insulin LISPRO 300 UNITS/3 ML VIAL SUBQ SCH ×3 (09:18→17:24)
[2021-07-30 10:05] LABS: Thyroid Stimulating Hormone 3.516 mcIU/mL (0.340-5.600)
[2021-07-30 11:17] VITALS: RESP 18
[2021-07-30 16:41] VITALS: BP 98/60; PULSE 86; TEMP 99.5; O2SAT 98
[2021-07-31] MEDS ORDERED: Apixaban 5 MG TABLET PO SCH (09:00)
== END 2021-07-30 18:40 | disposition short-term general hospital (02) ==
LOC: EMEROOGRE 11:53 → INPGRE 11:53
PROVIDERS: ADMIT Family Medicine; ATTEND Family Medicine

== ENCOUNTER 2021-10-07 16:30 | Inpatient (IN) ==
[2021-10-07] MEDS ORDERED: 0.9 % Sodium Chloride 1,000 ML IV ONE (16:40)
[2021-10-07] MEDS ORDERED: Ondansetron 4 MG/2 ML VIAL IVP ONE (16:40)
[2021-10-07 16:55] LABS: Basophils % 0.3 %; Eosinophils # 0.1 K/mcL (0.0-0.6); Eosinophils % 0.6 %; Hematocrit 41.4 % (35.3-44.9); Hemoglobin 12.6 g/dL (11.5-15.4); Immature Granulocytes % 0.4 % (0-4); Lymphocytes # 1.9 K/mcL (0.6-4.6); Lymphocytes % 18.1 %; Mean Corpuscular HGB Conc 30.4 g/dL (31.6-35.5); Mean Corpuscular Hemoglobin 25.5 pg (28.0-33.3); Mean Corpuscular Volume 83.6 fL (83.0-100.0); Mean Platelet Volume 9.5 fL (9.4-12.4); Monocytes # 0.7 K/mcL (0.0-1.3); Monocytes % 6.5 %; Neutrophils # 7.8 K/mcL (1.6-8.9); Platelet Count 123 K/mcL (140-400); Red Blood Count 4.95 M/mcL (3.82-4.97); Red Cell Distribution Width 19.6 % (11.5-14.5); Segmented Neutrophils % 74.1 %; White Blood Count 10.5 K/mcL (4.3-11.1)
[2021-10-07 17:01] LABS: INR 1.1; Prothrombin Time 12.8 Seconds (9.4-12.1)
[2021-10-07 17:04] LABS: Activated Partial Thrombo Time 30.9 Seconds (26.0-36.0)
[2021-10-07 17:14] LABS: Alanine Aminotransferase 12 Units/L (7-52); Albumin 3.3 g/dL (3.5-5.7); Albumin/Globulin Ratio 0.8 (1.1-2.2); Alkaline Phosphatase 79 Units/L (34-104); Aspartate Amino Transferase 21 Units/L (13-39); BUN/Creatinine Ratio 26 (6-26); Bilirubin,Total 0.5 mg/dL (0.3-1.0); Blood Urea Nitrogen 26 mg/dL (8-23); Carbon Dioxide 28 mEq/L (23-29); Chloride 99 mEq/L (98-107); Globulin 4.2 g/dL (2.4-3.5); Glucose 115 mg/dL (70-105); Magnesium 1.9 mg/dL (1.6-2.6); Osmolality,Calculated 286 (280-300); Phosphorous 3.6 mg/dL (2.7-4.5); Potassium 4.2 mEq/L (3.5-5.1); Sodium 135 mEq/L (136-145); Total Protein 7.5 g/dL (6.4-8.9); Troponin I < 0.03 ng/mL (< 0.04); eGFR For African Americans > 60 (> 60); eGFR For Non-African Americans 53 (> 60)
[2021-10-07 17:25] LABS: Anisocytosis 1+ (Not Present)
[2021-10-07] MEDS ORDERED: cefTRIAXone 1,000 MG in 0.9 % Sodium Chloride Mini Bag 100 ML IVPB ONE (17:58)
[2021-10-07] MEDS ORDERED: Furosemide 40 MG/4 ML VIAL IVP ONE (17:58)
[2021-10-07] MEDS ORDERED: Azithromycin 500 MG in 0.9 % Sodium Chloride 250 ML IVPB ONE (17:58)
[2021-10-07] MEDS ORDERED: Naloxone 0.4 MG/ML INJ IVP PRN ×5 (18:27→19:06)
[2021-10-07] MEDS ORDERED: Ondansetron 4 MG/2 ML VIAL IVP PRN ×3 (18:27→19:06)
[2021-10-07] MEDS ORDERED: Dextrose 4 GM Chewable Tablets PO PRN ×4 (18:30→19:06)
[2021-10-07] MEDS ORDERED: *HR* Dextrose 50 % in Water (Syg) 50 ML SYRINGE IVP PRN ×2 (18:30→19:06)
[2021-10-07] MEDS ORDERED: D5% in Water 1,000 ML IVC PRN ×2 (18:30→19:06)
[2021-10-07] MEDS ORDERED: Ipratropium/Albuterol Neb 3 ML IH PRN ×2 (18:33→19:06)
[2021-10-07 20:47] LABS: Bilirubin,Urine Negative (Negative); Blood,Urine Trace-intact (Negative); Clarity,Urine Clear (Clear); Color,Urine Yellow (Yellow); Glucose,Urine (UA) Normal (Normal); Ketones,Urine Negative (Negative); Leukocyte Esterase,Urine Negative (Negative); Nitrite,Urine Negative (Negative); Protein,Urine 100 mg/dL (Neg-Trace); Urobilinogen,Urine Normal (Normal)
[2021-10-07 20:50] LABS: RBC,Urine 0-3 per hpf (0-3); Squamous Epithelial Cell,Urine Few per hpf (None-Few)
[2021-10-07] MEDS ORDERED: Insulin LISPRO 300 UNITS/3 ML VIAL SUBQ SCH (21:00)
[2021-10-07] MEDS: Benzonatate 100 MG CAPSULE PO PRN (21:35)
[2021-10-07] MEDS: *HR* HYDROcodone/Acet 5/325 mg TABLET PO PRN (21:35)
[2021-10-07] MEDS: Insulin LISPRO 300 UNITS/3 ML VIAL SUBQ SCH (21:35)
[2021-10-08] MEDS: *HR* Enoxaparin 40 MG/0.4 ML SYRINGE SQ SCH (05:24)
[2021-10-08] MEDS: *HR* HYDROcodone/Acet 5/325 mg TABLET PO PRN ×2 (05:24→21:06)
[2021-10-08] MEDS: Benzonatate 100 MG CAPSULE PO PRN (05:24)
[2021-10-08 07:26] LABS: Basophils % 0.2 %; Hematocrit 36.4 % (35.3-44.9); Hemoglobin 11.3 g/dL (11.5-15.4); Immature Granulocytes % 0.4 % (0-4); Lymphocytes # 1.8 K/mcL (0.6-4.6); Lymphocytes % 14.4 %; Mean Corpuscular Hemoglobin 25.3 pg (28.0-33.3); Mean Corpuscular Volume 81.4 fL (83.0-100.0); Mean Platelet Volume 9.8 fL (9.4-12.4); Monocytes % 4.3 %; Neutrophils # 10.3 K/mcL (1.6-8.9); Platelet Count 117 K/mcL (140-400); Red Blood Count 4.47 M/mcL (3.82-4.97); Red Cell Distribution Width 19.3 % (11.5-14.5); Segmented Neutrophils % 80.7 %; White Blood Count 12.7 K/mcL (4.3-11.1)
[2021-10-08] MEDS ORDERED: Insulin LISPRO 300 UNITS/3 ML VIAL SUBQ SCH (07:30)
[2021-10-08 07:34] LABS: BUN/Creatinine Ratio 24 (6-26); Blood Urea Nitrogen 25 mg/dL (8-23); Calcium 8.2 mg/dL (8.6-10.3); Carbon Dioxide 25 mEq/L (23-29); Chloride 102 mEq/L (98-107); Glucose 121 mg/dL (70-105); Magnesium 1.6 mg/dL (1.6-2.6); Osmolality,Calculated 288 (280-300); Potassium 4.3 mEq/L (3.5-5.1); Sodium 136 mEq/L (136-145); eGFR For African Americans > 60 (> 60); eGFR For Non-African Americans 51 (> 60)
[2021-10-08] MEDS: Insulin LISPRO 300 UNITS/3 ML VIAL SUBQ SCH ×4 (07:48→21:07)
[2021-10-08 08:03] LABS: Monocytes # 0.6 K/mcL (0.0-1.3)
[2021-10-08] MEDS: Niacin (24 HR) 500 MG TAB.ER.24H PO SCH (08:34)
[2021-10-08] MEDS: Cyanocobalamin (B-12) 1,000 MCG TABLET PO SCH (08:34)
[2021-10-08] MEDS: Metoprolol XL (24 HR) Succ 50 MG TAB.ER.24H PO SCH (08:34)
[2021-10-08] MEDS: Insulin DETEMIR 100 UNIT/ML X5UNITS SUBQ SCH (08:42)
[2021-10-08] MEDS ORDERED: Azithromycin 500 MG in 0.9 % Sodium Chloride 250 ML IVPB SCH (09:00)
[2021-10-08] MEDS ORDERED: Furosemide 20 MG/2 ML VIAL IVP SCH ×2 (09:00)
[2021-10-08] MEDS ORDERED: cefTRIAXone 1,000 MG in 0.9 % Sodium Chloride Mini Bag 100 ML IVPB SCH (09:00)
[2021-10-08] MEDS: Piperacillin/Tazobactam 3.375 GM in 0.9 % Sodium Chloride Mini Bag 100 ML IVPB SCH ×2 (11:29→21:06)
[2021-10-08 13:54] LABS: Adenovirus Not Detected (Not Detect); Bordetella Pertussis Not Detected (Not Detect); Chlamydophila pneumoniae Not Detected (Not Detect); Coronavirus 229E Not Detected (Not Detect); Coronavirus HKU1 Not Detected (Not Detect); Coronavirus NL63 Not Detected (Not Detect); Coronavirus OC43 Not Detected (Not Detect); Human Metapneumovirus DETECTED (Not Detect); Human Rhinovirus/Enterovirus Not Detected (Not Detect); Influenza A Subtype 2009 H1 Not Detected (Not Detect); Influenza B Not Detected (Not Detect); Mycoplasma pneumoniae Not Detected (Not Detect); Parainfluenza Virus 1 Not Detected (Not Detect); Parainfluenza Virus 2 Not Detected (Not Detect); Parainfluenza Virus 3 Not Detected (Not Detect); Parainfluenza Virus 4 Not Detected (Not Detect); Respiratory Syncytial Virus Not Detected (Not Detect); SARS-CoV-2 Not Detected (Not Detect)
[2021-10-08] MEDS: MethylPREDNISolone 40 MG/ML VIAL IVP SCH (17:37)
[2021-10-08] MEDS: Furosemide 20 MG/2 ML VIAL IVP SCH (17:40)
[2021-10-09] MEDS: *HR* HYDROcodone/Acet 5/325 mg TABLET PO PRN ×2 (03:59→20:55)
[2021-10-09] MEDS: Piperacillin/Tazobactam 3.375 GM in 0.9 % Sodium Chloride Mini Bag 100 ML IVPB SCH ×2 (03:59→11:10)
[2021-10-09] MEDS: MethylPREDNISolone 40 MG/ML VIAL IVP SCH ×2 (03:59→16:44)
[2021-10-09] MEDS: *HR* Enoxaparin 40 MG/0.4 ML SYRINGE SQ SCH (04:00)
[2021-10-09 05:55] LABS: Basophils % 0.2 %; Hemoglobin 11.7 g/dL (11.5-15.4); Immature Granulocytes % 0.5 % (0-4); Lymphocytes % 8.8 %; Mean Corpuscular Volume 83.3 fL (83.0-100.0); Monocytes # 0.2 K/mcL (0.0-1.3); Monocytes % 1.9 %; Neutrophils # 9.6 K/mcL (1.6-8.9); Red Blood Count 4.68 M/mcL (3.82-4.97); Red Cell Distribution Width 19.5 % (11.5-14.5); Segmented Neutrophils % 88.6 %; White Blood Count 10.8 K/mcL (4.3-11.1)
[2021-10-09 05:56] LABS: Platelet Count 98 K/mcL (140-400)
[2021-10-09 06:13] LABS: Calcium 8.2 mg/dL (8.6-10.3); Potassium 4.9 mEq/L (3.5-5.1)
[2021-10-09 08:20] LABS: Thyroid Stimulating Hormone 1.936 mcIU/mL (0.340-5.600)
[2021-10-09] MEDS: Insulin LISPRO 300 UNITS/3 ML VIAL SUBQ SCH ×4 (08:27→21:20)
[2021-10-09] MEDS: Cyanocobalamin (B-12) 1,000 MCG TABLET PO SCH (08:35)
[2021-10-09] MEDS: Niacin (24 HR) 500 MG TAB.ER.24H PO SCH (08:35)
[2021-10-09] MEDS: Furosemide 20 MG/2 ML VIAL IVP SCH ×2 (08:36→16:44)
[2021-10-09] MEDS: Metoprolol XL (24 HR) Succ 50 MG TAB.ER.24H PO SCH (08:36)
[2021-10-09 09:25] LABS: Estimated Average Glucose 174 mg/dl; Hemoglobin A1C 7.7 %
[2021-10-09] MEDS ORDERED: *HR* Labetalol 20 MG/4 ML SYRINGE IVP PRN (09:29)
[2021-10-09] MEDS: Fluconazole 150 MG TABLET PO SCH (09:42)
[2021-10-09] MEDS: Benzonatate 100 MG CAPSULE PO PRN (11:10)
[2021-10-09] MEDS: Melatonin 3 MG TABLET PO PRN (20:56)
[2021-10-10] MEDS: Benzonatate 100 MG CAPSULE PO PRN ×2 (01:02→07:49)
[2021-10-10] MEDS: MethylPREDNISolone 40 MG/ML VIAL IVP SCH ×2 (05:41→16:12)
[2021-10-10 07:14] LABS: VBG Ionized Calcium 1.15 mmol/L (1.15-1.35)
[2021-10-10 07:14] LABS: Basophils % 0.2 %; Hematocrit 42.9 % (35.3-44.9); Immature Granulocytes % 0.6 % (0-4); Lymphocytes # 1.4 K/mcL (0.6-4.6); Lymphocytes % 11.6 %; Mean Corpuscular HGB Conc 30.3 g/dL (31.6-35.5); Mean Corpuscular Hemoglobin 24.9 pg (28.0-33.3); Monocytes # 0.3 K/mcL (0.0-1.3); Monocytes % 2.1 %; Neutrophils # 10.6 K/mcL (1.6-8.9); Red Blood Count 5.23 M/mcL (3.82-4.97); Red Cell Distribution Width 19.6 % (11.5-14.5); Segmented Neutrophils % 85.5 %; White Blood Count 12.4 K/mcL (4.3-11.1)
[2021-10-10 07:15] LABS: INR 1.2; Prothrombin Time 13.1 Seconds (9.4-12.1)
[2021-10-10 07:24] LABS: Albumin 3.1 g/dL (3.5-5.7); Albumin/Globulin Ratio 0.7 (1.1-2.2); Bilirubin,Total 0.6 mg/dL (0.3-1.0); Calcium 8.8 mg/dL (8.6-10.3); Globulin 4.2 g/dL (2.4-3.5); Potassium 5.1 mEq/L (3.5-5.1); Total Protein 7.3 g/dL (6.4-8.9)
[2021-10-10] MEDS: *HR* HYDROcodone/Acet 5/325 mg TABLET PO PRN ×2 (07:49→16:18)
[2021-10-10] MEDS: Metoprolol XL (24 HR) Succ 50 MG TAB.ER.24H PO SCH (07:49)
[2021-10-10] MEDS: Cyanocobalamin (B-12) 1,000 MCG TABLET PO SCH (07:49)
[2021-10-10] MEDS: Niacin (24 HR) 500 MG TAB.ER.24H PO SCH (07:50)
[2021-10-10] MEDS: Fluconazole 150 MG TABLET PO SCH (07:50)
[2021-10-10] MEDS: Furosemide 20 MG/2 ML VIAL IVP SCH (07:50)
[2021-10-10] MEDS: Insulin LISPRO 300 UNITS/3 ML VIAL SUBQ SCH ×3 (07:52→16:12)
[2021-10-10] MEDS: levoFLOXacin 750 MG TABLET PO SCH (08:38)
[2021-10-10 14:14] LABS: % Iron Saturation 7 % (15-50); Iron 22 mcg/dL (50-170); Transferrin 211 mg/dL (203-362)
[2021-10-10 14:58] LABS: Hepatitis B Surface Antigen Nonreactive (Nonreactive)
[2021-10-10 15:27] LABS: Hepatitis C Virus Antibody Nonreactive (Nonreactive)
[2021-10-10 15:28] LABS: Hepatitis B Core IgM Nonreactive (Nonreactive)
[2021-10-10 15:30] LABS: Hepatitis A Antibody IgM Nonreactive (Nonreactive)
[2021-10-10] MEDS: Melatonin 3 MG TABLET PO PRN (21:49)
[2021-10-10] MEDS: *HR* Enoxaparin 40 MG/0.4 ML SYRINGE SQ SCH (22:10)
[2021-10-11] MEDS: Insulin DETEMIR 100 UNIT/ML X5UNITS SUBQ SCH ×3 (00:31→21:06)
[2021-10-11] MEDS: Insulin LISPRO 300 UNITS/3 ML VIAL SUBQ SCH ×5 (00:32→20:58)
[2021-10-11 05:57] LABS: Basophils % 0.2 %; Hematocrit 41.8 % (35.3-44.9); Hemoglobin 12.8 g/dL (11.5-15.4); Immature Granulocytes % 0.8 % (0-4); Lymphocytes # 1.4 K/mcL (0.6-4.6); Lymphocytes % 10.8 %; Mean Corpuscular HGB Conc 30.6 g/dL (31.6-35.5); Mean Corpuscular Volume 81.8 fL (83.0-100.0); Mean Platelet Volume 9.3 fL (9.4-12.4); Monocytes # 0.4 K/mcL (0.0-1.3); Monocytes % 3.1 %; Neutrophils # 10.6 K/mcL (1.6-8.9); Nucleated Red Blood Cells 0.2 /100 WBC (0); Platelet Count 186 K/mcL (140-400); Red Blood Count 5.11 M/mcL (3.82-4.97); Red Cell Distribution Width 19.1 % (11.5-14.5); Segmented Neutrophils % 85.1 %; White Blood Count 12.5 K/mcL (4.3-11.1)
[2021-10-11 06:16] LABS: Calcium 8.8 mg/dL (8.6-10.3); Potassium 5.2 mEq/L (3.5-5.1)
[2021-10-11] MEDS: levoFLOXacin 750 MG TABLET PO SCH (09:35)
[2021-10-11] MEDS: Cyanocobalamin (B-12) 1,000 MCG TABLET PO SCH (09:45)
[2021-10-11] MEDS: *HR* Enoxaparin 40 MG/0.4 ML SYRINGE SQ SCH (09:45)
[2021-10-11] MEDS: Fluconazole 150 MG TABLET PO SCH (09:45)
[2021-10-11] MEDS: Niacin (24 HR) 500 MG TAB.ER.24H PO SCH (09:45)
[2021-10-11] MEDS: Metoprolol XL (24 HR) Succ 50 MG TAB.ER.24H PO SCH (09:45)
[2021-10-11] MEDS: Nystatin Cream 15 GM TUBE TP SCH ×2 (12:02→22:46)
[2021-10-11] MEDS: Azithromycin 250 MG TABLET PO SCH (12:03)
[2021-10-11] MEDS: cefTRIAXone 1,000 MG in 0.9 % Sodium Chloride 10 ML IVP SCH (12:03)
[2021-10-11] MEDS: hydrALAZINE 25 MG TABLET PO SCH ×2 (12:03→16:48)
[2021-10-11 13:18] LABS: Calcium 8.7 mg/dL (8.6-10.3); Potassium 5.2 mEq/L (3.5-5.1)
[2021-10-11] MEDS: *HR* HYDROcodone/Acet 5/325 mg TABLET PO PRN (17:59)
[2021-10-11] MEDS: Melatonin 3 MG TABLET PO PRN (21:04)
[2021-10-12] MEDS: hydrALAZINE 25 MG TABLET PO SCH ×3 (00:29→17:00)
[2021-10-12] MEDS: *HR* HYDROcodone/Acet 5/325 mg TABLET PO PRN ×2 (00:30→20:11)
[2021-10-12 06:17] LABS: Basophils # 0.1 K/mcL (0.0-0.2); Basophils % 0.6 %; Eosinophils % 0.1 %; Hematocrit 43.7 % (35.3-44.9); Hemoglobin 13.3 g/dL (11.5-15.4); Immature Granulocytes % 2.5 % (0-4); Lymphocytes % 17.1 %; Mean Corpuscular HGB Conc 30.4 g/dL (31.6-35.5); Mean Corpuscular Hemoglobin 24.9 pg (28.0-33.3); Mean Corpuscular Volume 81.7 fL (83.0-100.0); Mean Platelet Volume 8.7 fL (9.4-12.4); Monocytes # 1.4 K/mcL (0.0-1.3); Monocytes % 11.8 %; Neutrophils # 7.8 K/mcL (1.6-8.9); Nucleated Red Blood Cells 0.3 /100 WBC (0); Platelet Count 269 K/mcL (140-400); Red Blood Count 5.35 M/mcL (3.82-4.97); Red Cell Distribution Width 19.8 % (11.5-14.5); Segmented Neutrophils % 67.9 %; White Blood Count 11.5 K/mcL (4.3-11.1)
[2021-10-12 07:38] LABS: Calcium 9.3 mg/dL (8.6-10.3)
[2021-10-12] MEDS: Insulin DETEMIR 100 UNIT/ML X5UNITS SUBQ SCH ×2 (07:48→20:14)
[2021-10-12] MEDS: Insulin LISPRO 300 UNITS/3 ML VIAL SUBQ SCH ×4 (07:48→20:12)
[2021-10-12] MEDS: Metoprolol XL (24 HR) Succ 50 MG TAB.ER.24H PO SCH (08:05)
[2021-10-12] MEDS: cefTRIAXone 1,000 MG in 0.9 % Sodium Chloride 10 ML IVP SCH (08:05)
[2021-10-12] MEDS: Niacin (24 HR) 500 MG TAB.ER.24H PO SCH (08:05)
[2021-10-12] MEDS: Cyanocobalamin (B-12) 1,000 MCG TABLET PO SCH (08:05)
[2021-10-12] MEDS: Fluconazole 150 MG TABLET PO SCH (08:05)
[2021-10-12] MEDS: Nystatin Cream 15 GM TUBE TP SCH ×2 (08:06→20:14)
[2021-10-12] MEDS: *HR* Enoxaparin 30 MG/0.3 ML SYRINGE SQ SCH (08:06)
[2021-10-12] MEDS: Azithromycin 250 MG TABLET PO SCH (12:18)
[2021-10-13] MEDS: hydrALAZINE 25 MG TABLET PO SCH ×3 (00:25→16:18)
[2021-10-13] MEDS: Nystatin Cream 15 GM TUBE TP SCH ×2 (00:26→08:48)
[2021-10-13 05:00] LABS: Basophils % 0.5 %; Eosinophils # 0.2 K/mcL (0.0-0.6); Eosinophils % 2.6 %; Hematocrit 39.4 % (35.3-44.9); Immature Granulocytes % 2.9 % (0-4); Lymphocytes # 2.6 K/mcL (0.6-4.6); Lymphocytes % 33.6 %; Mean Corpuscular HGB Conc 29.7 g/dL (31.6-35.5); Mean Corpuscular Hemoglobin 24.6 pg (28.0-33.3); Mean Corpuscular Volume 82.9 fL (83.0-100.0); Mean Platelet Volume 8.8 fL (9.4-12.4); Monocytes # 0.7 K/mcL (0.0-1.3); Monocytes % 9.1 %; Neutrophils # 3.9 K/mcL (1.6-8.9); Platelet Count 196 K/mcL (140-400); Red Blood Count 4.75 M/mcL (3.82-4.97); Red Cell Distribution Width 19.6 % (11.5-14.5); Segmented Neutrophils % 51.3 %; White Blood Count 7.6 K/mcL (4.3-11.1)
[2021-10-13 05:02] LABS: Hemoglobin 11.7 g/dL (11.5-15.4)
[2021-10-13 05:14] LABS: Calcium 8.5 mg/dL (8.6-10.3); Potassium 4.6 mEq/L (3.5-5.1)
[2021-10-13] MEDS: Insulin LISPRO 300 UNITS/3 ML VIAL SUBQ SCH ×2 (07:37→11:45)
[2021-10-13 08:47] LABS: ANA IgG by ELISA DETECTED (None Detected)
[2021-10-13] MEDS: cefTRIAXone 1,000 MG in 0.9 % Sodium Chloride 10 ML IVP SCH (08:49)
[2021-10-13] MEDS: *HR* Enoxaparin 30 MG/0.3 ML SYRINGE SQ SCH (08:49)
[2021-10-13] MEDS: Insulin DETEMIR 100 UNIT/ML X5UNITS SUBQ SCH (08:49)
[2021-10-13] MEDS: Cyanocobalamin (B-12) 1,000 MCG TABLET PO SCH (08:50)
[2021-10-13] MEDS: Metoprolol XL (24 HR) Succ 50 MG TAB.ER.24H PO SCH (08:50)
[2021-10-13] MEDS: Niacin (24 HR) 500 MG TAB.ER.24H PO SCH (08:50)
[2021-10-13] MEDS: Azithromycin 250 MG TABLET PO SCH (10:56)
[2021-10-13 11:40] VITALS: BP 163/95; PULSE 88; RESP 17; TEMP 98.3; O2SAT 98
[2021-10-14] MEDS ORDERED: *HR* Enoxaparin 40 MG/0.4 ML SYRINGE SQ SCH (06:00)
[2021-10-14 22:05] LABS: ANA HEp-2 IgG IFA DETECTED (<1:80); Anti Nuclear Ab Pattern SPECKLED
== END 2021-10-13 16:32 | DRG 193 ==
LOC: EMEROOGRE 16:30 → INPGRE 16:30
PROVIDERS: ADMIT Family Medicine; ATTEND Family Medicine